=== PATIENT | female | born 1985 | race Caucasian/White ===

== ENCOUNTER 2016-06-21 08:48 | Emergency (ER) | payer MEDICAID ==
[2016-06-21 08:58] VITALS: BP 121/75; PULSE 80; RESP 20; TEMP 97.9
[2016-06-21 09:01] VITALS: O2SAT 98
[2016-06-21] MEDS ORDERED: Sodium Chloride 0.9% 1,000 ML IV SCH (10:00)
--- NOTE | 2016-06-21 10:45 | ED PDOC ---
HPI: Back Time Seen by Provider: 06/21/16 09:30 Chief Complaint (Nursing): Back Pain Chief Complaint (Provider): Back pain History Per: Patient History/Exam Limitations: no limitations Onset/Duration Of Symptoms: Days (5) Current Symptoms Are (Timing): Still Present Quality Of Discomfort: "Pain" Severity: Moderate Pain Scale Rating Of: 5 Previous Symptoms: None Exacerbating Factor(s): Other (eating) Additional History Per: Patient Additional Complaint(s): 31 yo F with no significant PMH here with c/o left sided back pain which has been intermittently present x 1 week. Pt says that she got wisdom teeth pulled 1 week ago, and was on antibiotics which she completed. Recalls cleaning the house after that but denies fall or trauma. Says that over the past few days, noted left sided back pain which is only present when she is eating, therefore has been eating minimally. No abdominal pain, N/V/D/C. Denies pain on movement or turning. Denies dysuria, urinary urgency or frequency. Currently menstruating. Past Medical History Reviewed: Historical Data, Nursing Documentation, Vital Signs Vital Signs: Last Vital Signs Temp 97.9 F 06/21/16 08:57 Pulse 80 06/21/16 08:57 Resp 20 06/21/16 08:57 BP 121/75 06/21/16 08:57 Pulse Ox 98 06/21/16 08:59 - Medical History PMH: Anemia - Surgical History Surgical History: Cholecystectomy - Family History Family History: States: No Known Family Hx, Unknown Family Hx - Home Medications Home Medications: Ambulatory Orders Medication Instructions Recorded Ibuprofen [Motrin] 600 mg PO TID PRN #20 tab 06/21/16 - Allergies Allergies/Adverse Reactions: Allergies Allergy/AdvReac Type Severity Reaction Status Date / Time Penicillins Allergy Mild RASH Verified 06/21/16 09:01 Review of Systems Constitutional: Negative for: Fever, Chills Cardiovascular: Negative for: Chest Pain Respiratory: Negative for: Shortness of Breath Gastrointestinal: Negative for: Nausea, Vomiting, Abdominal Pain, Diarrhea Genitourinary Female: Negative for: Dysuria, Frequency Musculoskeletal: Positive for: Back Pain Skin: Negative for: Rash Neurological: Negative for: Weakness, Dizziness Physical Exam - Reviewed Nursing Documentation Reviewed: Yes Vital Signs Reviewed: Yes - Physical Exam Appears: Positive for: Well, No Acute Distress Head Exam: Positive for: NORMAL INSPECTION Skin: Positive for: Normal Color, Warm, Dry Neck: Positive for: Normal, Painless ROM, Supple Cardiovascular/Chest: Positive for: Regular Rate, Rhythm Respiratory: Positive for: Normal Breath Sounds Gastrointestinal/Abdominal: Positive for: Bowel Sounds (normal), Soft. Negative for: Tenderness Back: Positive for: Normal Inspection. Negative for: L CVA Tenderness, R CVA Tenderness, Vertebral Tenderness, Decreased ROM, Muscle Spasm Neurologic/Psych: Positive for: Alert, Oriented, Gait (normal) - ECG O2 Sat by Pulse Oximetry: 98 - Progress ED Course And Treament: Toradol 30mg IV x 1 Flexeril 10mg PO x 1 NS 1L bolus PO challenge Reevaluated at 11:15am Pain is resolved Tolerated PO without any pain Re-evaluation Time: 11:15 Condition: Re-examined, Improved Medical Decision Making Medical Decision MakinL NS bolus flexeril 10mg PO x 1 Toradol 30mg IV x 1 Disposition - Clinical Impression Clinical Impression: Back strain - Patient ED Disposition Is Patient to be Admitted: No - Disposition Disposition: Routine/Home Disposition Time: 11:22 Condition: GOOD Prescriptions: Ibuprofen [Motrin] 600 mg PO TID PRN #20 tab PRN Reason: Pain, Moderate (4-7)
== END 2016-06-21 12:25 | disposition home or self-care (01) ==
LOC: H.ER 08:48
DX: M54.5 Low back pain (principal)

== ENCOUNTER 2017-10-11 20:03 | Emergency (ER) | payer MEDICAID ==
[2017-10-11 20:27] VITALS: BP 129/80; PULSE 78; RESP 16; TEMP 99.1; O2SAT 99
[2017-10-11] MEDS ORDERED: Sodium Chloride 0.9% 1,000 ML IV STA (20:36)
--- NOTE | 2017-10-11 20:54 | ED PDOC ---
HPI: Female Pain Time Seen by Provider: 10/11/17 20:30 Chief Complaint (Nursing): Female Genitourinary Chief Complaint (Provider): vaginal bleeding History Per: Patient History/Exam Limitations: no limitations Quality Of Discomfort: Cramping Additional Complaint(s): 32 y/o female presents for evaluation of heavy vaginal bleeding x 1 day. Associated suprapubic cramping. Patient admits to history of anemia due to heavy periods, but states today was more heavy than usual, with + clots. Denies headache, dizziness, nausea/vomiting, chest pain, shortness of breath, palpitations, urinary symptoms. Past Medical History Reviewed: Historical Data, Nursing Documentation, Vital Signs Vital Signs: Last Vital Signs Temp 99.1 F 10/11/17 20:20 Pulse 78 10/11/17 20:20 Resp 16 10/11/17 20:20 BP 129/80 10/11/17 20:20 Pulse Ox 99 10/11/17 20:20 - Medical History PMH: Anemia (on iron supplement daily) - Surgical History Surgical History: Cholecystectomy - Family History Family History: States: Unknown Family Hx - Home Medications Home Medications: Ambulatory Orders Medication Instructions Recorded Ibuprofen [Motrin] 600 mg PO TID PRN #20 tab 06/21/16 Naproxen [Naprosyn] 500 mg PO Q12 PRN #20 tablet 10/12/17 - Allergies Allergies/Adverse Reactions: Allergies Allergy/AdvReac Type Severity Reaction Status Date / Time Penicillins Allergy Mild RASH Verified 06/21/16 09:01 amoxicillin Allergy ANGIOEDEMA Verified 10/11/17 20:20 Review of Systems ROS Statement: Except As Marked, All Systems Reviewed And Found Negative Genitourinary Female: Positive for: Vaginal Bleeding, Pelvic Pain Physical Exam - Reviewed Nursing Documentation Reviewed: Yes Vital Signs Reviewed: Yes - Physical Exam Appears: Positive for: Well, Non-toxic, No Acute Distress Head Exam: Positive for: ATRAUMATIC, NORMAL INSPECTION, NORMOCEPHALIC Skin: Positive for: Normal Color Eye Exam: Positive for: Normal appearance ENT: Positive for: Normal ENT Inspection Cardiovascular/Chest: Positive for: Regular Rate, Rhythm Respiratory: Positive for: Normal Breath Sounds Gastrointestinal/Abdominal: Positive for: Bowel Sounds, Soft, Tenderness ( suprapubic) Pelvic Exam: Positive for: External Exam Normal, No Cerv. Motion Tender, Active Bleeding, Other (exam mine expert Zabrina Burr Rn). Negative for: Tender Adnexa Back: Positive for: Normal Inspection Extremity: Positive for: Normal ROM Neurologic/Psych: Positive for: Alert, Oriented - Laboratory Results Result Diagrams: 10/11/17 21:30 10/11/17 21:30 - ECG O2 Sat by Pulse Oximetry: 99 - Progress ED Course And Treament: labs, u/s EXAM: US Pelvis Complete, Transabdominal US Duplex Arterial/Venous of the Pelvis, Complete CLINICAL HISTORY: 32 years old, female; Signs and symptoms; Menstruation abnormalities; Irregular menstruation; Additional info: Pelvic pain, vaginal bleeding TECHNIQUE: Real-time transabdominal pelvic ultrasound (complete) with image documentation. Real-time duplex ultrasound scan of the arterial and venous flow of the pelvis with color Doppler flow and spectral waveform analysis. COMPARISON: No relevant prior studies available. FINDINGS: Uterus/cervix: 1.7 x 1.6 x 1.6 cm anterior uterine mass. Endometrium: 1.0 cm in thickness. Right ovary: No mass. Normal flow. Left ovary: No mass. Normal flow. Free fluid: No significant free fluid. IMPRESSION: 1. Probable fibroid. 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
[2017-10-11 21:38] LABS: BASO % 0.6 % (0.0-2.0); EOS # 0.1 K/uL (0.0-0.7); HEMOGLOBIN 9.5 g/dL (12.0-16.0); LYMPH # 2.2 K/uL (1.0-4.3); LYMPH % 26.3 % (20.0-40.0); MEAN CORPUSCULAR HEMOGLOBIN 20.3 pg (27.0-31.0); MEAN CORPUSCULAR HGB CONC 30.4 g/dL (33.0-37.0); MEAN PLATELET VOLUME 9.7 fl (7.2-11.7); MONO # 0.7 K/uL (0.0-0.8); MONO % 8.1 % (0.0-10.0); NEUT # 5.4 K/uL (1.8-7.0); RBC 4.69 Mil/uL (3.80-5.20); RED CELL DISTRIBUTION WIDTH 21.8 % (11.5-14.5); WHITE BLOOD COUNT 8.5 K/uL (4.8-10.8)
[2017-10-11 21:52] LABS: ALB/GLOB RATIO 1.3 (1.0-2.1); ALBUMIN 4.1 g/dL (3.5-5.0); ALT/SGPT 27 U/L (9-52); AST/SGOT 25 U/L (14-36); BLOOD UREA NITROGEN 17 mg/dl (7-17); CALCIUM 9.3 mg/dL (8.4-10.2); GFR AFRICAN-AMERICAN > 60; GFR NON-AFRICAN AMERICAN > 60
[2017-10-11 23:01] LABS: MEAN CELL VOLUME 66.6 fl (81.0-99.0)
--- NOTE | 2017-10-12 11:46 | US ---
Date of service: 10/11/2017 HISTORY: pelvic pain, vaginal bleeding COMPARISON: Comparison made with prior pelvic ultrasound 08/22/2013. . TECHNIQUE: Transabdominal sonographic evaluation of the pelvis performed FINDINGS: UTERUS: Measures 13.9 x 4.9 x 5.2 cm. Normal in size and appearance. . There is an anterior fibroid measuring 1.7 x 1.6 x 1.6 cm ENDOMETRIUM: Measures 1.7 mm in diameter. Unremarkable. CERVIX: No cervical abnormality identified. RIGHT OVARY: Measures 2.9 x 1.8 x 2.4 cm. No solid mass. Normal flow. LEFT OVARY: Measures 2.6 x 1.9 x 2.5 cm. No solid mass. Normal flow. FREE FLUID: No significant free fluid noted. OTHER FINDINGS: None. IMPRESSION: Findings consistent with anterior uterine fibroid
== END 2017-10-12 00:36 | disposition home or self-care (01) ==
LOC: H.ER 20:03
DX: D25.9 Leiomyoma of uterus, unspecified (principal); D64.9 Anemia, unspecified; N92.0 Excessive and frequent menstruation with regular cycle; Z88.0 Allergy status to penicillin
CPT/HCPCS: 76856; 80053; 81025; 85025; 96360; 99283; J7030